=== PATIENT | male | born 1995 | race Caucasian/White ===

== ENCOUNTER 2019-09-26 14:11 | Emergency (ER) | payer OTHER, SELFPAY ==
[2019-09-26 14:21] VITALS: BP 150/70; PULSE 90; RESP 16; TEMP 37.1; O2SAT 100
--- NOTE | 2019-09-26 14:45 | ED_ITS ---
HPI - Skin/Abscess/Foreign Bdy General Chief complaint: Skin/Abscess/Foreign Body Stated complaint: rash Source: patient Mode of arrival: ambulatory Limitations: no limitations History of Present Illness HPI narrative: The patient, who works in [employer], notes about 1/2-week history of pink, raised, itchy rash on extremities. Symptoms are mild, unrelieved with OTC preparations The patient has been informed that they may have pre-hypertension or Hypertension based on a BP reading in the department. I recommend that the patient call the primary care provider listed on their discharge instructions or a physician of their choice this week to arrange follow up for further evaluation of possible pre-hypertension or Hypertension Related Data Allergies Allergy/AdvReac Type Severity Reaction Status Date / Time Sulfa (Sulfonamide Allergy Unknown WHEN INFANT Verified 02/04/17 10:02 Antibiotics) Review of Systems Review of Systems: Narrative: General/Constitutional: No weight loss,fever Eyes: N0: Redness,discharge Ears/Nose/Throat: No: Epistaxis,ear discharge Respiratory: Denies: Hemoptysis Gastrointestinal: No Vomiting, Bleeding-rectal Skin: ++ Lumps, eruption Neurologic: No Focal Weakness,Sz Hematologic: Denies: Petechiae/Purpura Psychiatric: No: Suicida ideationl All Other Systems: Reviewed and Negative PMFSH Social History Social History Gender identity (if verbalized by the patient): Male Comments At time of signature, agree with nursing past medical, surgical, social and family history. There is no relevant family history pertinent to the presenting complaint Exam Narrative: Exam Narrative: General Appearance: Well-nourished, obese: Normocephalic Eye: PERRLA, Conjunctiva clear Ear: External ear normal Mouth/Throat: Normal appearing, Supple Respiratory: Airway patent, No respiratory distress Musculoskeletal: Moves all extremities, Non tender Skin: Warm, Dry widespread maculopapular and occ excoriated, papular-vesicular eruption of the extremities and trunk Neurological: A&O x3, Normal affect Course Vital Signs Vital signs: Vital Signs Temperature 98.7 F 09/26/19 14:21 Pulse Rate 90 09/26/19 14:21 Respiratory Rate 16 09/26/19 14:21 Blood Pressure 150/70 H 09/26/19 14:21 Pulse Oximetry 100 09/26/19 14:21 Temperature 98.7 F 09/26/19 14:21 Pulse Rate 90 09/26/19 14:21 Respiratory Rate 16 09/26/19 14:21 Blood Pressure 150/70 H 09/26/19 14:21 Pulse Oximetry 100 09/26/19 14:21 Discharge Plan Discharge Clinical Impression: Contact dermatitis Qualifiers: Contact dermatitis type: unspecified Contact dermatitis trigger: non-food plants Qualified Code(s): L25.5 - Unspecified contact dermatitis due to plants, except food Patient Disposition: Home, Self-Care Condition: Stable Instructions: Poison Priya (ED) Prescriptions: New methylprednisolone [Medrol (Mir)] 4 mg tablets,dose pack See Rx Instructions .ROUTE .COMPLEX Qty: 2 RF: 0 loratadine [Claritin] 10 mg tablet 10 mg PO DAILY PRN (Reason: allergy symptoms) Qty: 20 RF: 0 Follow-up/Referrals: Dio Glynn MD [Primary Care Provider] -
== END 2019-09-26 15:15 | disposition home or self-care (01) ==
PROVIDERS: Emergency Provider Emergency Medicine; PCP Family Medicine Adolescent Medicine
DX: L25.5 Unspecified contact dermatitis due to plants, except food (principal)
CPT/HCPCS: 99213; G0463